=== PATIENT | female | born 1995 | race Caucasian/White ===

== ENCOUNTER 2018-01-18 15:50 | Inpatient (IN) | payer OTHER ==
[~2018-01-18] VITALS: Ht 162.6 cm; Wt 118.3 kg
[2018-01-18 16:21] LABS: HEMATOCRIT 44.2 % (36.0-46.0); HEMOGLOBIN 14.5 G/DL (11.9-15.5); MCH 30.3 PG (29.0-34.0); MCHC 32.8 G/DL (30.0-36.0); MCV 92.3 FL (83-99); PLATELET COUNT 136 K/uL (156-360); RBC DIS.WIDTH-CV 13.8 % (11.8-14.6); RBC DIS.WIDTH-SD 46.8 % (39-53); RED BLOOD COUNT 4.79 M/uL (3.80-5.20); WHITE BLOOD COUNT 12.3 K/uL (4.1-10.2)
[2018-01-18 16:23] LABS: CHLORIDE 112 mEq/L (99-109); SODIUM 141 mEq/L (136-147)
[2018-01-18 16:25] LABS: GLUCOSE 105 mg/dL (70-99)
[2018-01-18 16:28] LABS: SERUM ETHYL ALCOHOL < 10 mg/dL
[2018-01-18 16:29] LABS: CREATININE 0.8 mg/dL (0.6-1.3)
[2018-01-18 16:30] LABS: UREA NITROGEN (BUN) 6 mg/dL (9-23)
[2018-01-18 16:32] LABS: GFR ESTIMATE (CALCULATED) > 59 mL/min/
[2018-01-18 16:41] LABS: AMPHETAMINE NEGATIVE (500 ng/mL); BARBITURATES NEGATIVE (200 ng/mL); BENZODIAZEPINES PRESUMPTIVE POSITIVE (150 ng/mL); COCAINE NEGATIVE (150 ng/mL); METHADONE NEGATIVE (200 ng/mL); METHAMPHETAMINE NEGATIVE (500 ng/mL); OPIATES (MORPHINE) NEGATIVE (100 ng/mL); OXYCODONE NEGATIVE (100 ng/mL); PHENCYCLIDINE NEGATIVE (25 ng/mL); PROPOXYPHENE NEGATIVE (300 ng/mL); THC CANNABINOIDS PRESUMPTIVE POSITIVE (50 ng/mL); TRICYCLIC ANTIDEPRESSANTS NEGATIVE (300 ng/mL)
[2018-01-18 16:42] LABS: BUPRENORPHINE NEGATIVE (10 ng/mL)
[2018-01-18 17:16] LABS: THYROTROPIN (TSH) 0.89 MIU/L (0.4-5.5)
[2018-01-18 17:28] LABS: BENZODIAZEPINES, URINE SCREEN POSITIVE (200 ng/mL)
[2018-01-18 22:15] VITALS: BP 113/64
[2018-01-18 22:27] VITALS: BP 113/64
[2018-01-19] MEDS ORDERED: LEXAPRO20 MG PO (00:11)
[2018-01-19] MEDS ORDERED: INDERAL40 MG PO (00:12)
[2018-01-19] MEDS ORDERED: OMEPRAZOLE40 M1 PO (00:18)
[2018-01-19] MEDS ORDERED: TOPAMAX25 MG PO (00:20)
[2018-01-19] MEDS ORDERED: TOPAMAX50 MG PO (05:45)
[2018-01-19] MEDS ORDERED: LAMICTAL100 MG PO (05:49)
[2018-01-19 06:22] VITALS: BP 114/56
[2018-01-19 15:51] VITALS: BP 117/55
[2018-01-20 08:07] VITALS: BP 112/69
[2018-01-20 15:32] VITALS: BP 130/63
[2018-01-21 08:05] VITALS: BP 110/57
[2018-01-21 15:39] VITALS: BP 133/57; BP 136/76
[2018-01-22 07:45] VITALS: BP 109/57
[2018-01-22 15:31] VITALS: BP 113/57
[2018-01-23 08:00] VITALS: BP 113/56
[2018-01-23 16:12] VITALS: BP 131/61
[2018-01-24 08:05] VITALS: BP 108/66
[2018-01-24] MEDS ORDERED: LAMOTRIGINE150 MG PO (11:05)
[2018-01-24] MEDS ORDERED: GABAPENTIN400 MG PO (11:05)
[2018-01-24] MEDS ORDERED: ARIPIPRAZOLE10 MG PO (11:05)
== END 2018-01-24 12:55 | disposition home or self-care (01) | DRG 885 ==
LOC: EME 15:50 → 1WEST 20:34 → EDOF 20:34 → 1WEST 20:34 → ENRESERV 21:59 → 1WEST 22:07
DX: F31.81 Bipolar II disorder (principal); F60.3 Borderline personality disorder; F41.1 Generalized anxiety disorder; R45.851 Suicidal ideations; F43.10 Post-traumatic stress disorder, unspecified; E05.00 Thyrotoxicosis with diffuse goiter without thyrotoxic crisis or storm; E06.3 Autoimmune thyroiditis; E66.9 Obesity, unspecified; F17.200 Nicotine dependence, unspecified, uncomplicated; Z62.810 Personal history of physical and sexual abuse in childhood; Z68.41 Body mass index [BMI] 40.0-44.9, adult; Z91.5 Personal history of self-harm
CPT/HCPCS: 80048; 81003; 84439; 84443; 84999; 85027; 87077; 87086; 87186; 90839; 97150 GO; 97165 GO; 99281; 99285; G0480; Q0177